=== PATIENT | female | born 1945 | race Caucasian/White ===

== ENCOUNTER 2020-08-22 12:02 | Inpatient (IN) | payer MEDICARE ==
[~2020-08-22] VITALS: Ht 172.7 cm; Wt 82.1 kg
[2020-08-22 12:26] VITALS: BP 130/86
[2020-08-22 12:45] LABS: BASO % 0.4 % (0.0-1.0); EOS % 0.1 % (1.0-4.0); HEMATOCRIT 46.3 % (37.0-47.0); LYMPH % 19.4 % (27.0-41.0); MEAN CELL VOLUME 96.1 fl (81.0-99.0); MEAN CORPUSCULAR HGB 29.9 pg (27.0-31.0); MEAN CORPUSCULAR HGB CONC 31.1 g/dl (33.0-37.0); MEAN PLATELET VOLUME 9.6 fl (9.6-12.3); MONO # 0.9 10*3/uL (0.1-1.0); MONO % 8.4 % (3.0-9.0); NEUT # 7.3 10*3/uL (2.3-7.9); NEUT % 71.4 % (47.0-73.0); PLATELET COUNT AUTOMATED 304 10*3/uL (130-400); RED BLOOD COUNT 4.82 10*6/uL (4.10-5.10); RED CELL DISTRI WIDTH 13.9 % (0-14.5); WHITE BLOOD COUNT 10.2 10*3/uL (4.8-10.8)
[2020-08-22 12:55] LABS: ACT PARTIAL THROMBO TIME 29.1 SECONDS (20.0-32.1); INTERNATIONAL NORM RATIO 1.1 (2.0-3.5)
[2020-08-22 13:02] LABS: ALBUMIN 3.4 gm/dl (3.1-4.5); ALKALINE PHOSPHATASE 61 U/L (45-117); BUN 15 mg/dl (7-24); CHLORIDE 109 mmol/L (98-107); CREATININE 0.71 mg/dL (0.55-1.02); POTASSIUM 4.2 mmol/L (3.5-5.1); SGOT/AST 23 IU/L (3-35); SGPT/ALT 34 U/L (12-78); SODIUM 140 mmol/L (136-145); TOTAL PROTEIN 7.9 gm/dL (6.4-8.2)
[2020-08-22 13:04] LABS: TROPONIN I 0.032 ng/ml (<0.045)
[2020-08-22 13:26] VITALS: BP 119/68
[2020-08-22 14:18] VITALS: BP 114/66
[2020-08-22] MEDS ORDERED: VENT7GM INH (14:54)
[2020-08-22] MEDS ORDERED: VENTOLIN 02.5 MG/3 M INH (14:54)
[2020-08-22] MEDS ORDERED: ADVAIR HFA 230-12 GM INH (14:55)
[2020-08-22] MEDS ORDERED: FOSAMAX70 M1 PO (14:56)
[2020-08-22] MEDS ORDERED: SINGULAIR10 M1 PO (14:56)
[2020-08-22] MEDS ORDERED: BUSPIRONE HCL10 MG PO (14:56)
[2020-08-22] MEDS ORDERED: CALCIUM + VITA1 EAC2 PO (14:57)
[2020-08-22] MEDS ORDERED: MULTIVITAMINS1 EAC5 PO (14:57)
[2020-08-22] MEDS ORDERED: BENADRYL25 M2 PO (14:58)
[2020-08-22] MEDS ORDERED: COLACE100 MG PO (14:58)
--- NOTE | 2020-08-22 16:03 | NUR ---
THE PATIENT DOES NOT WANT BLOOD CULTURES OR ANY MORE LABS DONE. PER HER SHE DOES NOT NEED THEM
[2020-08-22 16:18] VITALS: BP 112/75
--- NOTE | 2020-08-22 16:53 | NUR ---
A 74, admitted to [facility], under the services of SARA Figueroa DO with a diagnosis of NEW ONSET ATRIAL FIB. Chief complaint is CHEST PAIN. Patient arrived via stretcher from ER. Monitor applied. Initial assessment completed. Vital signs taken and recorded. SARA FIGUEROA DO notified of admission to the unit. Orders received. See assessment for past medical history, medications and allergies. Patient and/or family oriented to unit. [facility] visitation policy reviewed. [facility]
[2020-08-22 16:54] VITALS: BP 122/72
[2020-08-22 20:00] VITALS: BP 126/79
--- NOTE | 2020-08-22 20:00 | NUR ---
A 74, admitted to , under the services of SARA Figueroa DO with a diagnosis of NEW ONSET AFIB, COPD EXACERBATION. Chief complaint is SOB. Patient arrived via bed from ER. Monitor applied. Initial assessment completed. Vital signs taken and recorded. SARA FIGUEROA DO notified of admission to the unit. Orders received. See assessment for past medical history, medications and allergies. Patient oriented to unit. Clothing/patient valuable form completed. EILEEN FALCON
[2020-08-22] MEDS ORDERED: IBU800 MG PO (20:16)
[2020-08-22] MEDS ORDERED: TYLENOL EXTRA500 MG PO (20:16)
--- NOTE | 2020-08-22 20:58 | NUR ---
MADE AWARE THAT HOME MEDS ARE VERIFIED.
--- NOTE | 2020-08-22 22:50 | NUR ---
Hep Lock discontinued. Site symptomatic, PULLED OUT. Pressure applied. Sterile dressing applied. EILEEN FALCON
--- NOTE | 2020-08-22 22:50 | NUR ---
IV started right hand with #22 protective cath after 1 attempts. Site prepped with Chloroprep. Sterile dressing applied. Patient tolerated procedure well. EILEEN FALCON
[2020-08-23] VITALS: BP 128/81
--- NOTE | 2020-08-23 03:50 | NUR ---
ANSWERING SERVICES CALLED FOR NEW CONSULT. MESSAGE TO BE SENT
--- NOTE | 2020-08-23 06:09 | NUR ---
MADE AWARE THAT PATIENT REFUSED MORNING LAB WORK. DOCTOR STATES OK
--- NOTE | 2020-08-23 06:27 | NUR ---
DR. PICKARD MADE AWARE OF CONSULT. NO NEW ORDERS AT THIS TIME. MADE AWARE THAT PATIENT DOES NNOT WEAR HOME O2 AND IS CURRENTLY ON 4L NC.
[2020-08-23 08:00] VITALS: BP 125/82
--- NOTE | 2020-08-23 09:00 | NUR ---
Concession Supervisor in to talk to patient. Patient states lives at home with her son, grandson, and her grandson's girlfriend. There are 0 steps in the home. There are 6 outside steps. Physician: she was seeing Dr. Fernando Choe but now wants to go to the resident clinic Pharmacy: [facility] Home health services: none Patient's level of ADLs: INDEPENDENT Patient has working utilities: yes DME: nebulizer Follow-up physician's appointment after d/c: will be made by the hospitalist nurse director upon discharge Does patient want to access PORTAL?: no Discharge plan discussed with patient. She is sitting on the edge of her bed eating breakfast. She lives at home with her family. She states she is independent in her ADLs and ambulation. Discussed home health care services and she declines. CM will continue to follow for any discharge planning needs. When medically stable she will be discharged to home. She states whoever is available when she is discharged will provide transportation. LESTER AGUIRRE
[2020-08-23 11:48] LABS: ABG BASE EXCESS 3.1 mmol/L (-2.0-2.0); ARTERIAL BLOOD GAS PH 7.425 (7.35-7.45)
[2020-08-23 12:00] VITALS: BP 121/84
--- NOTE | 2020-08-23 12:22 | NUR ---
PT C/O OF BACK PAIN, WHICH IS CHRONIC RATING 5/10 PRN MOTRIN GIVEN PER REQUEST
--- NOTE | 2020-08-23 15:31 | NUR ---
24 HR CHART CHECK COMPLETE.
[2020-08-23 16:00] VITALS: BP 108/60
[2020-08-23 20:00] VITALS: BP 103/51
[2020-08-24] VITALS: BP 100/44
[2020-08-24 08:00] VITALS: BP 115/72
--- NOTE | 2020-08-24 09:00 | NUR ---
CM in to see patient. She is sitting on the edge of her bed. No new needs or request. Discussed home health care services and she declines. CM will continue to follow for any discharge planning needs. When medically stable she will be discharged to home.
[2020-08-24 09:33] LABS: BASO % 0.1 % (0.0-1.0); HEMATOCRIT 45.1 % (37.0-47.0); LYMPH # 0.9 10*3/uL (1.3-4.4); LYMPH % 6.9 % (27.0-41.0); MEAN CELL VOLUME 97.4 fl (81.0-99.0); MEAN CORPUSCULAR HGB CONC 30.8 g/dl (33.0-37.0); MEAN PLATELET VOLUME 9.8 fl (9.6-12.3); MONO # 0.5 10*3/uL (0.1-1.0); MONO % 3.8 % (3.0-9.0); NEUT # 11.4 10*3/uL (2.3-7.9); NEUT % 88.5 % (47.0-73.0); PLATELET COUNT AUTOMATED 323 10*3/uL (130-400); RED BLOOD COUNT 4.63 10*6/uL (4.10-5.10); RED CELL DISTRI WIDTH 13.7 % (0-14.5); WHITE BLOOD COUNT 12.9 10*3/uL (4.8-10.8)
[2020-08-24 09:54] LABS: CHLORIDE 109 mmol/L (98-107); CREATININE 0.71 mg/dL (0.55-1.02); POTASSIUM 4.7 mmol/L (3.5-5.1); SODIUM 141 mmol/L (136-145)
[2020-08-24 10:00] LABS: BUN 29 mg/dl (7-24); THYROID STIM HORMONE (HS) 0.099 uIU/ml (0.358-4.75)
--- NOTE | 2020-08-24 10:30 | NUR ---
Patient requesting information/phone number for [employer] supplement insurance. Provided patient with information sheet and phone number.
[2020-08-24] MEDS ORDERED: BREO ELLIPTA 21 EACH INH (10:47)
--- NOTE | 2020-08-24 11:00 | NUR ---
PT ANN FOR STRESS TEST
--- NOTE | 2020-08-24 12:21 | NUR ---
INFORMED SIGNED CONSENT OBTAINED FOR LEXISCAN STRESS TEST WITH DR ISLAS. RESTING EKG NSR WITH TRIGEMINYHR 78 BP 110/70. PULSE OX 96% ON 3L, I AND E WHEEZE NOTED, PT GIVEN BREATHING TREATMENT. PT COMPLETED ONE MINUTE OF A LEXISCAN PROTOCOL WITH PT RECEIVING LEXISCAN 0.4MG IV OVER 10 SECONDS. TRIGEMINY REMAINS. SOB WITH INJECTION. LAST RECOVERY HR OF 110 BP 110/60. PT IN STABLE CONDITION, AWAITING NUCLEAR IMAGES.
[2020-08-24 16:00] VITALS: BP 114/70
[2020-08-24 20:00] VITALS: BP 131/57
--- NOTE | 2020-08-24 21:59 | NUR ---
MOTRIN GIVEN PER ORDER FOR GENERALIZED PAIN. SEE MAR.
--- NOTE | 2020-08-24 22:50 | NUR ---
MOTRIN EFFECTIVE FOR PAIN PER PT.
[2020-08-25] VITALS: BP 120/84
--- NOTE | 2020-08-25 03:13 | NUR ---
24 HR chart check completed.
--- NOTE | 2020-08-25 04:31 | NUR ---
FRANCHESCA LAMAR NOTED.
--- NOTE | 2020-08-25 05:25 | NUR ---
VISTARIL GIVEN PER ORDER FOR C/O ANXIETY. SEE MAR
[2020-08-25 06:31] LABS: BASO % 0.1 % (0.0-1.0); HEMATOCRIT 47.7 % (37.0-47.0); LYMPH % 6.7 % (27.0-41.0); MEAN CELL VOLUME 98.8 fl (81.0-99.0); MEAN CORPUSCULAR HGB 29.8 pg (27.0-31.0); MEAN CORPUSCULAR HGB CONC 30.2 g/dl (33.0-37.0); MEAN PLATELET VOLUME 9.7 fl (9.6-12.3); MONO # 0.8 10*3/uL (0.1-1.0); MONO % 5.4 % (3.0-9.0); NEUT % 86.9 % (47.0-73.0); PLATELET COUNT AUTOMATED 337 10*3/uL (130-400); RED BLOOD COUNT 4.83 10*6/uL (4.10-5.10); RED CELL DISTRI WIDTH 13.5 % (0-14.5)
--- NOTE | 2020-08-25 06:50 | NUR ---
JOELTARIL HELP A LITTLE BIT PER PT.
[2020-08-25 08:00] VITALS: BP 107/52
--- NOTE | 2020-08-25 10:04 | NUR ---
PT ASSESSED FOR HOME O2: RA AT REST: SPO2 86% HR 57 RA ON 2 L NC AT REST: SPO2 92% HR 60 AMBULATING WITH 2 L NC: SPO2 87% HR 90 AMBULATING ON 3 L NC: SPO2 91-93% HR 88 PT REQUIRES 3 L NC WITH AMBULATION PT REQUIRES 2 L NC AT REST.
--- NOTE | 2020-08-25 11:06 | NUR ---
Received oxygen prescription for O2 @ 2L at rest and 3L with ambulation continuous. Spoke to Shanel at [facility] who states a tank will be delivered to her room here at the hospital. Faxed oxygen prescription and clinical.
[2020-08-25] MEDS ORDERED: PREDNISONE10 MG PO (11:21)
[2020-08-25] MEDS ORDERED: LOPRESSOR25 MG PO (11:21)
[2020-08-25] MEDS ORDERED: LISINOPRIL2.5 MG PO (11:21)
[2020-08-25] MEDS ORDERED: XARE20MG PO (11:21)
[2020-08-25] MEDS ORDERED: DOXYCYCLINE100 MG PO (11:21)
--- NOTE | 2020-08-25 12:34 | NUR ---
Pt states that she is ready to go. IV removed and monitor removed. Pt had already received Dc instructions. Oxygen was just delivered.
--- NOTE | 2020-08-25 12:43 | NUR ---
Discharge instructions reviewed with patient/family. Patient receptive and verbalizes understanding. Follow-up care arranged. Written instructions given to patient/family, IV REMOVED, TELEMETRY ACCOUNTED FOR, TAKEN OUT VIA W/C BY HOSPITAL PA. HINA HERNANDEZ
== END 2020-08-25 12:43 | disposition home or self-care (01) | DRG 871 ==
LOC: ED 12:02 → EDHOLD 14:06 → 4E 14:06
PROVIDERS: Emergency Medicine; Internal Medicine Critical Care Medicine; Student in an Organized Health Care Education/Training Program; ADMIT Internal Medicine; ATTEND Internal Medicine
PROC: 4A02XM4 Measurement of Cardiac Total Activity, External Approach (ICD-10-PCS; principal; 2020-08-24)
PROC: 3E073KZ Introduction of Other Diagnostic Substance into Coronary Artery, Percutaneous Approach (ICD-10-PCS; principal; 2020-08-24)
DX: A41.9 Sepsis, unspecified organism (principal); J15.6 Pneumonia due to other Gram-negative bacteria; J96.01 Acute respiratory failure with hypoxia; J44.1 Chronic obstructive pulmonary disease with (acute) exacerbation; E44.0 Moderate protein-calorie malnutrition; J44.0 Chronic obstructive pulmonary disease with (acute) lower respiratory infection; I48.91 Unspecified atrial fibrillation; J45.909 Unspecified asthma, uncomplicated; F41.1 Generalized anxiety disorder; R65.20 Severe sepsis without septic shock; F17.210 Nicotine dependence, cigarettes, uncomplicated; M81.0 Age-related osteoporosis without current pathological fracture; J20.9 Acute bronchitis, unspecified; F10.10 Alcohol abuse, uncomplicated; Z88.2 Allergy status to sulfonamides; Z90.710 Acquired absence of both cervix and uterus; Z90.49 Acquired absence of other specified parts of digestive tract; Z68.27 Body mass index [BMI] 27.0-27.9, adult; Z79.899 Other long term (current) drug therapy

== ENCOUNTER 2020-08-26 11:29 | Emergency (ER) | payer MEDICARE ==
[~2020-08-26 11:29] MED LIST: ADVAIR HFA 230-12 GM INH; BENADRYL25 M2 PO; BREO ELLIPTA 21 EACH INH; BUSPIRONE HCL10 MG PO; CALCIUM + VITA1 EAC2 PO; COLACE100 MG PO; DOXYCYCLINE100 MG PO; FOSAMAX70 M1 PO; IBU800 MG PO; LISINOPRIL2.5 MG PO; LOPRESSOR25 MG PO; MULTIVITAMINS1 EAC5 PO; PREDNISONE10 MG PO; SINGULAIR10 M1 PO; TYLENOL EXTRA500 MG PO; VENT7GM INH; VENTOLIN 02.5 MG/3 M INH; XARE20MG PO
[2020-08-26 12:01] LABS: HEMATOCRIT 53.5 % (37.0-47.0); MEAN CELL VOLUME 101.3 fl (81.0-99.0); MEAN CORPUSCULAR HGB 29.7 pg (27.0-31.0); MEAN CORPUSCULAR HGB CONC 29.3 g/dl (33.0-37.0); MEAN PLATELET VOLUME 9.6 fl (9.6-12.3); PLATELET COUNT AUTOMATED 383 10*3/uL (130-400); RED BLOOD COUNT 5.28 10*6/uL (4.10-5.10); RED CELL DISTRI WIDTH 13.5 % (0-14.5); WHITE BLOOD COUNT 18.3 10*3/uL (4.8-10.8)
[2020-08-26 12:12] LABS: ACT PARTIAL THROMBO TIME 33.5 SECONDS (20.0-32.1); INTERNATIONAL NORM RATIO 1.2 (2.0-3.5)
[2020-08-26 12:18] LABS: TOTAL CELLS COUNTED 100 #CELLS
[2020-08-26 12:19] LABS: ALBUMIN 3.4 gm/dl (3.1-4.5); ALKALINE PHOSPHATASE 76 U/L (45-117); BUN 25 mg/dl (7-24); CHLORIDE 109 mmol/L (98-107); CREATININE 0.81 mg/dL (0.55-1.02); POTASSIUM 4.6 mmol/L (3.5-5.1); SGOT/AST 35 IU/L (3-35); SGPT/ALT 90 U/L (12-78); SODIUM 139 mmol/L (136-145); TOTAL PROTEIN 7.8 gm/dL (6.4-8.2)
[2020-08-26 12:19] LABS: PLATELET SUFFICIENCY NORMAL (NORMAL)
[2020-08-26 12:20] LABS: ETHYL ALCOHOL < 3.0 mg/dl (<3); TROPONIN I 0.035 ng/ml (<0.045)
[2020-08-26 12:26] LABS: ABG BASE EXCESS 0.7 mmol/L (-2.0-2.0); ARTERIAL BLOOD GAS PH 7.213 (7.35-7.45)
[2020-08-26 15:07] LABS: URINE AMPHETAMINES < 1000 (1000ng/ml); URINE BARBITURATES < 200 (200ng/ml); URINE BENZODIAZEPINES > 200 (200ng/ml); URINE CANNABINOIDS (THC) < 50 (50ng/ml); URINE COCAINE < 300 (300ng/ml); URINE METHADONE < 300 (300ng/ml); URINE OPIATES < 300 (300ng/ml); URINE PHENCYCLIDINE < 25 (25ng/ml)
[2020-08-26 15:12] LABS: BILIRUBIN Negative (Negative); BLOOD 3+ (Negative); CLARITY Turbid (Clear); COLOR Red (Yellow); GLUCOSE Negative (Negative); KETONE Negative (Negative); LEUKO ESTERASE 1+ (Negative); NITRITE Negative (Negative); PH 5.5 (4.5-8.0); SPECIFIC GRAVITY 1.015 (1.001-1.030); UROBILINOGEN 0.2 E.U./dl (0.0-1.0)
[2020-08-26 15:13] LABS: RBC TNTC rbc/hpf (0-2)
== END 2020-08-26 20:49 | disposition short-term general hospital (02) ==
LOC: ED 11:29
PROVIDERS: Emergency Medicine
DX: J96.90 Respiratory failure, unspecified, unspecified whether with hypoxia or hypercapnia (principal); R65.21 Severe sepsis with septic shock; Z88.2 Allergy status to sulfonamides; Z79.899 Other long term (current) drug therapy; Z79.2 Long term (current) use of antibiotics

== ENCOUNTER 2022-01-17 12:11 | Emergency (ER) | payer MEDICARE ==
[~2022-01-17] VITALS: Wt 81.6 kg
== END 2022-01-17 12:50 | disposition home or self-care (01) ==
LOC: ED 12:11
DX: H01.001 Unspecified blepharitis right upper eyelid (principal); Z88.2 Allergy status to sulfonamides; Z79.899 Other long term (current) drug therapy; Z90.710 Acquired absence of both cervix and uterus; Z90.49 Acquired absence of other specified parts of digestive tract; Z90.89 Acquired absence of other organs; F17.210 Nicotine dependence, cigarettes, uncomplicated

== ENCOUNTER 2022-02-01 15:51 | Emergency (ER) | payer MEDICARE ==
[2022-02-01] MEDS ORDERED: ERYTHROMYCIN OPH1 GM OPH (16:30)
[2022-02-01] MEDS ORDERED: ZITHROMAX250 MG PO (16:30)
== END 2022-02-01 16:45 | disposition home or self-care (01) ==
LOC: ED 15:51
DX: H01.003 Unspecified blepharitis right eye, unspecified eyelid (principal); Z88.2 Allergy status to sulfonamides; Z79.899 Other long term (current) drug therapy; Z90.710 Acquired absence of both cervix and uterus; Z90.49 Acquired absence of other specified parts of digestive tract; Z90.89 Acquired absence of other organs; F17.210 Nicotine dependence, cigarettes, uncomplicated

== ENCOUNTER 2022-03-14 20:26 | Emergency (ER) | payer MEDICARE ==
[~2022-03-14] VITALS: Ht 170.1 cm; Wt 77.4 kg
[~2022-03-14 20:26] MED LIST changes: +ERYTHROMYCIN OPH1 GM OPH; +ZITHROMAX250 MG PO
[2022-03-14] MEDS ORDERED: AMIODARONE HYD200 MG PO (20:33)
[2022-03-14] MEDS ORDERED: TRAZODONE100 MG PO (20:34)
[2022-03-14 21:44] LABS: ALKALINE PHOSPHATASE 58 U/L (45-117); BUN 12 mg/dl (7-24); CHLORIDE 111 mmol/L (98-107); CREATININE 0.67 mg/dL (0.55-1.02); SGOT/AST 21 IU/L (3-35); SGPT/ALT 24 U/L (12-78); SODIUM 140 mmol/L (136-145); TOTAL PROTEIN 6.7 gm/dL (6.4-8.2)
[2022-03-14 21:45] LABS: ETHYL ALCOHOL < 3.0 mg/dl (<3)
[2022-03-15 00:24] LABS: URINE AMPHETAMINES < 1000 (1000ng/ml); URINE BARBITURATES < 200 (200ng/ml); URINE BENZODIAZEPINES < 200 (200ng/ml); URINE CANNABINOIDS (THC) < 50 (50ng/ml); URINE COCAINE < 300 (300ng/ml); URINE METHADONE < 300 (300ng/ml); URINE OPIATES < 300 (300ng/ml)
[2022-03-15 00:27] LABS: URINE PHENCYCLIDINE < 25 (25ng/ml)
== END 2022-03-15 01:29 | disposition home or self-care (01) ==
LOC: ED 20:26
PROVIDERS: Internal Medicine
DX: S06.0X0A Concussion without loss of consciousness, initial encounter (principal); I48.91 Unspecified atrial fibrillation; J45.909 Unspecified asthma, uncomplicated; F17.210 Nicotine dependence, cigarettes, uncomplicated; Z88.2 Allergy status to sulfonamides; Z79.899 Other long term (current) drug therapy; Z90.710 Acquired absence of both cervix and uterus; Z90.49 Acquired absence of other specified parts of digestive tract; Z90.89 Acquired absence of other organs; V89.2XXA Person injured in unspecified motor-vehicle accident, traffic, initial encounter; Y93.I9 Activity, other involving external motion; Y92.488 Other paved roadways as the place of occurrence of the external cause; Y99.8 Other external cause status